=== PATIENT | female | born 1940 | race African-American/Black ===

== ENCOUNTER → 2019-03-17 | Outpatient (CLI) | payer OTHER ==
--- NOTE | 2019-03-19 10:07 | PATH ---
[facility] [place] [address] PATHOLOGY RPT PROCEDURE Name: AFSANEH ENAMORADO Room #: REG [facility]..#: [id number] ������������������ Admission: 03/17/19 ������������������ Date of : 38 Discharge: Report #: [id number] Path Case #: [id number] [facility] Accession Number: [id number] . 01 Material submitted: . PART A: small bowel - BX SMALL BOWEL PART B: stomach - BX GASTRITIS PART C: colon - RANDOM BX RIGHT COLON. Modifiers: right PART D: colon - RANDOM BX LEFT COLON. Modifiers: left . 01 Clinical history: . Pre-OP DX: Iron deficiency anemia, diarrhea, blood in stool Post-OP DX: Gastritis, gastric ulcers, diverticulosis . 02 Diagnosis: A. Small bowel mucosa, small bowel rule out celiac disease, endoscopic biopsy: - Focal acute duodenitis associated with fundic-type metaplasia, compatible with acute peptic duodenitis. - No significant villous blunting or increase in intraepithelial lymphocytosis identified. . B. Gastric mucosa, gastritis, rule out H. pylori, endoscopic biopsy: - Moderate reactive gastropathy with active gastritis. - Negative for intestinal metaplasia or atrophy. - Negative for Helicobacter pylori (properly-controlled immunohistochemical stain performed). . C. Large intestinal mucosa, right, rule out microscopic colitis, endoscopic biopsy: - Mild active colitis. - Negative for microscopic colitis. - Negative for dysplasia or malignancy. . D. Large intestinal mucosa, left colon, rule out microscopic colitis, endoscopic biopsy: - Moderate active colitis. - Negative for microscopic colitis. - Negative for dysplasia or malignancy. . (IUV:mml; 03/18/2019) [facility] 03/18/2019 1557 Local . 02 Comment: Examination of the large intestinal mucosa biopsy tissues show scattered rare foci of cryptitis and a single focus of crypt abscess within the left colon biopsy tissue. The lamina propria is mildly expanded with [facility] [address] [place] [address] PATHOLOGY RPT PROCEDURE Name: AFSANEH ENAMORADO [id number] ������������������ Admission: 03/17/19 ������������������ Date of : 38 Discharge: Report #: [id number] Path Case #: [id number] lymphocytes, rare eosinophils and plasma cells. Architectural abnormalities are not identified. There is no evidence of lamina propria fibrosis or features of microscopic colitis identified. Overall, findings are suggestive of focal acute self-limited episode of colitis, infectious-type of colitis, inflammatory bowel disease, acute diverticulitis as well as medication-induced colitis. Clinical correlation is suggested. . (IUV:mml; 03/18/2019) . 02 Electronically signed: . Caridad Pate MD, Pathologist NPI- [id number] . 01 Gross description: . A. Received in formalin labeled "Sheldon, Afsaneh, BX small bowel, rule out celiac disease," are multiple segments of neal soft tissue measuring 1.5 x 0.4 x 0.1 cm in aggregate dimensions. The specimen is filtered and entirely submitted in cassette A1. . B. Received in formalin labeled "Sheldon, Afsaneh, BX gastritis, rule out H. pylori," are multiple segments of neal soft tissue measuring 1.9 x 0.6 x 0.2 cm in aggregate dimensions. The specimen is filtered and entirely submitted in cassette B1. . C. Received in formalin labeled "Sheldon, Afsaneh, random BX right colon," and additionally labeled on the requisition as "rule out microscopic colitis," are 4 segments of neal soft tissue measuring 1.5 x 0.9 x 0.3 cm in aggregate dimensions and ranging from 0.4 to 0.5 cm in maximum dimension. The specimen is submitted entirely in cassette C1. . D. Received in formalin labeled "Sheldon, Afsaneh, random BX left colon," are multiple segments of neal soft tissue measuring 1.4 x 0.5 x 0.1 cm in aggregate dimensions. The specimen is filtered and entirely submitted in cassette D1. (TSD; 03/17/2019) TOB/TOB 03/17/2019 1754 Local . 02 Pathologist provided ICD-10: K29.80, K31.9, K29.50, K52.9 . 02 CPT . 413976, 644698, 322783, 815374, [id number] Specimen Comment: A courtesy copy of this report has been sent to Specimen Comment: [phone], . Specimen Comment: Report sent to / DR REGALADO Performed at: 01 [place] [address] PATHOLOGY RPT PROCEDURE Name: AFSANEH ENAMORADO Room #: REG JUAREZ M.R.#: [id number] ������������������ Admission: 03/17/19 ������������������ Date of : 38 Discharge: Report #: [id number] Path Case #: [id number] [address] [facility] [address] [facility] [address], [place], [place] [id number] MD Mane Goldman MD Phone: [phone] Performed at: [address] [id number] MD Caridad Pate MD Phone: [phone]
== END | disposition home or self-care (01) ==
LOC: GI 07:55
DX: K52.9 Noninfective gastroenteritis and colitis, unspecified (principal); K63.89 Other specified diseases of intestine; K29.80 Duodenitis without bleeding; K31.9 Disease of stomach and duodenum, unspecified; K29.50 Unspecified chronic gastritis without bleeding; K57.30 Diverticulosis of large intestine without perforation or abscess without bleeding; I10 Essential (primary) hypertension; E78.00 Pure hypercholesterolemia, unspecified; Z98.890 Other specified postprocedural states; Z79.899 Other long term (current) drug therapy
CPT/HCPCS: 62110; 62900

== ENCOUNTER → 2020-06-16 | Outpatient (CLI) | payer OTHER ==
[~2020-06-16] MED LIST: ASA81BEC PO; HYDRALAZINE 2525 M1 PO; IRON325 M1 PO; LIPITOR20 MG PO; NORVASC10 MG PO; VITAMIN C500 M2 PO
== END ==
LOC: LAB 07:54
PROVIDERS: ATTEND Internal Medicine Gastroenterology
DX: Z01.812 Encounter for preprocedural laboratory examination (principal); Z20.828 Contact with and (suspected) exposure to other viral communicable diseases

== ENCOUNTER → 2020-06-21 | Outpatient (CLI) | payer OTHER ==
[~2020-06-21] VITALS: Ht 167.6 cm; Wt 77.1 kg
--- NOTE | 2020-06-22 16:06 | PATH ---
[facility] [address] [place] [address] PATHOLOGY RPT PROCEDURE Name: AFSANEH GAFFNEY Room #: REG JUAREZ Nitesh.#: [id number] Admission: 06/21/20 Date of : 38 Discharge: Report #: [id number] Path Case #: [id number] [facility] Accession Number: [id number] . 01 Material submitted: . stomach - BIOPSY RANDOM GASTRIC R/O H. PYLORI . 01 Clinical history: . RECHECK OF HEALING ULCERS, GASTRIC ULCERS . 02 Diagnosis: Gastric mucosa, random gastric rule out H. pylori, endoscopic biopsy: - Moderate reactive gastropathy. - No active ulcer identified in the current biopsy tissue. - Negative for intestinal metaplasia or atrophy. - Negative for Helicobacter pylori (properly controlled immunohistochemical stain performed). (IUV/db; 06/22/2020) [facility] 06/22/2020 1255 Local . 02 Electronically signed: . Caridad Pate MD, Pathologist NPI- [id number] . 01 Gross description: . The specimen is received in formalin, labeled "Afsaneh Gaffney, gastric random, R/O H. pylori". Received are multiple segments of pale neal soft tissue ranging in size from 0.2 to 0.6 cm in maximum dimensions. The specimen is submitted entirely in cassette A1. (CAA; 06/21/2020) QA/QA 06/21/2020 1738 Local . 02 Pathologist provided ICD-10: K31.9 . 02 CPT . 532183, [id number] Specimen Comment: A courtesy copy of this report has been sent to [phone] Specimen Comment: [phone] Specimen Comment: Report sent to / DR REGALADO Performed at: [address] [id number] MD Boris Magallanes MD Phone: [phone] Performed at: 02 [facility] [address] [place] [address] PATHOLOGY RPT PROCEDURE Name: FEIAFSANEH Room #: REG CLChayo Lawrence.Dori.#: [id number] Admission: 06/21/20 Date of : 38 Discharge: Report #: [id number] Path Case #: [id number] [address] [place] [id number] MD Caridad Pate MD Phone: [phone]
== END | disposition home or self-care (01) ==
LOC: GI 09:34
PROVIDERS: ATTEND Internal Medicine Gastroenterology
DX: K25.9 Gastric ulcer, unspecified as acute or chronic, without hemorrhage or perforation (principal); K31.9 Disease of stomach and duodenum, unspecified; I10 Essential (primary) hypertension; E78.5 Hyperlipidemia, unspecified; E78.00 Pure hypercholesterolemia, unspecified; D64.9 Anemia, unspecified; Z98.890 Other specified postprocedural states; Z79.899 Other long term (current) drug therapy; Z79.01 Long term (current) use of anticoagulants; Z85.05 Personal history of malignant neoplasm of liver; Z95.0 Presence of cardiac pacemaker; Z95.2 Presence of prosthetic heart valve
CPT/HCPCS: 62110; 62900